=== PATIENT | female | born 1955 | race Caucasian/White ===

== ENCOUNTER 2023-06-20 08:09 | Outpatient (OUT) | payer OTHER, SELFPAY ==
[2023-06-20 08:40] LABS: Basophils Absolute Auto 0.1 10^3/uL (0.0-0.1); Basophils Percent Auto 0.9 % (0.2-2.0); Eosinophils Absolute Auto 0.2 10^3/uL (0.0-0.7); Eosinophils Percent Auto 3.7 % (0.9-7.0); Hemoglobin 13.4 g/dL (12.0-16.0); Immature Granulocytes Abs Auto 0.02 10^3/uL (0.00-0.03); Immature Granulocytes Pct Auto 0.3 % (0.0-0.5); Lymphocytes Absolute Auto 2.2 10^3/uL (1.2-3.8); Lymphocytes Percent Auto 34.1 % (20.5-60.0); Mean Corpuscular HGB Conc 32.7 g/dL (29.9-35.2); Mean Corpuscular Hemoglobin 29.9 pg (26.7-34.0); Mean Corpuscular Volume 91.5 fL (81.0-99.0); Mean Platelet Volume 8.9 fL (9.5-13.5); Monocytes Absolute Auto 0.5 10^3/uL (0.3-0.8); Monocytes Percent Auto 8.1 % (1.7-12.0); Neutrophils Absolute Auto 3.4 10^3/uL (1.4-6.5); Neutrophils Percent Auto 52.9 % (43.0-75.0); Platelet Count 274 10^3/uL (150-450); Red Blood Count 4.48 10^6/uL (4.20-5.40); Red Cell Distribution Width 13.3 % (11.0-15.0); White Blood Count 6.5 10^3/uL (4.0-11.0)
[2023-06-20 08:45] LABS: Bilirubin Urine NEGATIVE (NEGATIVE); Blood Urine MODERATE (NEGATIVE); Clarity Urine CLEAR (CLEAR); Color Urine LT. YELLOW (YELLOW); Glucose Urine UA NEGATIVE (NEGATIVE); Ketones Urine NEGATIVE (NEGATIVE); Leukocyte Esterase Urine NEGATIVE (NEGATIVE); Nitrite Urine NEGATIVE (NEGATIVE); Protein Urine NEGATIVE (NEG/TRACE); Urobilinogen Urine 0.2 EU/dL (0.2-1.0)
[2023-06-20 09:03] LABS: Bacteria Urine NONE SEEN #/HPF (NONE SEEN); Cast Seen? NONE SEEN #/LPF (NONE SEEN); Crystals Seen? None Seen #/HPF (None Seen); Mucus Urine NONE SEEN (NONE SEEN); Squamous Epithelial Cell Urine RARE #/LPF (NONE/RARE); WBC Urine 0-2 #/HPF (NONE SEEN)
[2023-06-20 09:23] LABS: Alanine Aminotransferase 21 U/L (14-59); Albumin Level 3.7 g/dL (3.4-5.0); Alkaline Phosphatase 54 U/L (46-116); Anion Gap 12.6; Aspartate Amino Transferase 14 U/L (15-37); BUN Creatinine Ratio 29.9; Bilirubin Total 0.6 mg/dL (0.2-1.0); Calcium 9.2 mg/dL (8.5-10.1); Carbon Dioxide 26.4 mmol/L (21.0-32.0); Chloride 101 mmol/L (98-107); Chol HDL Ratio 2.6; Cholesterol 208 mg/dL (<=200); Estimated GFR (African America >60 (>=60); Estimated GFR (Non-African Ame >60 (>=60); Globulin 3.6 g/dL; Glucose 99 mg/dL (74-106); HDL Cholesterol 81 mg/dL (40-60); Sodium 136 mmol/L (136-145); Total Protein 7.3 g/dL (6.4-8.2); Triglycerides 52 mg/dL (<=150); VLDL CHOLESTEROL 10.4 mg/dL
== END 2023-06-20 08:10 | disposition home or self-care (01) ==
LOC: LAB 08:12
PROVIDERS: PCP Nurse Practitioner; Visit Provider Nurse Practitioner
DX: R31.21 Asymptomatic microscopic hematuria (principal); J44.9 Chronic obstructive pulmonary disease, unspecified; I10 Essential (primary) hypertension; E78.5 Hyperlipidemia, unspecified
CPT/HCPCS: 36415; 80053; 80061; 81001; 85025

== ENCOUNTER 2023-07-20 11:09 | Emergency (ER) | payer OTHER, SELFPAY ==
[2023-07-20 11:16] VITALS: BP 177/107; PULSE 69; RESP 18; TEMP 36.4; O2SAT 98; BMI 22.0
--- OUTSIDE RECORDS SUMMARY | 2023-07-20 11:38 | XMS_ITS | CCD ---
Author Name Unknown Address [address] [facility] [address] [place] [id number] Organization [facility] Care Team Providers Care Title Specialist Name Role Phone AICHHOLZ, ROLLER CHECKER MAE Admitting Unavailable AICHHOLZ, ROLLER CHECKER MAE Attending Unavailable DR SILVESTRE SULLIVAN Primary Care Unavailable AICHHOLZ, ROLLER CHECKER MAE Consulting Unavailable AICHHOLZ, ROLLER CHECKER MAE Primary Care Unavailable AICHHOLZ, ROLLER CHECKER MAE Admitting Unavailable AICHHOLZ, ROLLER CHECKER MAE Attending Unavailable AICHHOLZ, ROLLER CHECKER MAE Consulting Unavailable AICHHOLZ, ROLLER CHECKER AME Admitting Unavailable AICHHOLZ, ROLLER CHECKER MAE Attending Unavailable AICHHOLZ, ROLLER CHECKER MAE Consulting Unavailable AICHHOLZ, ROLLER CHECKER MAE Primary Care Unavailable AICHHOLZ, ROLLER CHECKER MAE Admitting Unavailable AICHHOLZ, ROLLER CHECKER MAE Attending Unavailable AICHHOLZ, ROLLER CHECKER MAE Consulting Unavailable AICHHOLZ, ROLLER CHECKER MAE Primary Care Unavailable MD Oral Haji Attending Provider NON STAFF Primary Care Provider Unavailabl e NON STAFF Primary Care Unavailable Oral Haji Admitting Unavailable Oral Haji Attending Unavailable NON STAFF Primary Care Unavailable Oral Haji Admitting Unavailable Oral Haji Attending Unavailable NON STAFF Primary Care Unavailable Oral Haji Admitting Unavailable Oral Haji Attending Unavailable AICHHOLZ, MAE Attending Unavailable Allergies Allergy Classification Reported Allergen(s) Allergy Type Date of Onset Reaction(s) Facility (1 source) Acetaminophen / oxyCODONE Drug Allergy 04-15-[address] [facility] Medications Current Medications Medication Drug Class(es) Dates Sig (Normalized) Sig (Original) 120 actuat budesonide 0.16 mg/actuat / formoterol fumarate 0.0045 mg/actuat metered dose inhaler (2 sources) Corticosteroid, beta2-Adrenergic Agonist Start: 01-02-2023 Budesonide-Formotero l Active 2 INH INHALATION Twice daily January 02, 2023 12:00am cholecalciferol 0.125 mg oral tablet (2 sources) Vitamin D Start: 01-02-2023 take 5000 [IU] by mouth once daily in the morning Cholecalciferol (Vitamin D3) Active 5000 UNIT PO Every morning January 02, 2023 12:00am lisinopril 20 mg oral tablet (2 sources) Angiotensin Converting Enzyme Inhibitor Start: 01-02-2023 take 20 mg by mouth once daily Lisinopril Active 20 MG PO Daily January 02, 2023 12:00am simvastatin 40 mg oral tablet (2 sources) HMG-CoA Reductase Inhibitor Start: 01-02-2023 take 40 mg by mouth once daily in the morning Simvastatin Active 40 MG PO Every morning January 02, 2023 12:00am Problems Active Problems Problem Classification Problem Date Documented Da te Episodic/Chronic Cataract (1 source) Unspecified cataract; Translations: [Unspecified cataract] Onset: 02-13-2023 Chronic Cataract (1 source) Cataract; Translations: [Age-related nuclear cataract, left eye] Onset: 01-16-2023 Disorders of lipid metabolism (4 sources) Hyperlipidemia, unspecified; Translations: [HYPERLIPIDEMIA UNSPECIFIED] Onset: 11-19-2021 Chronic Essential hypertension (1 source) Essential (primary) hypertension; Translations: [ESSENTIAL PRIMARY HYPERTENSION] Onset: 11-23-2021 Chronic Fever of unknown origin (1 source) Fever, unspecified; Translations: [FEVER UNSPECIFIED] Onset: 05-25-2022 Episodic Genitourinary symptoms and ill-defined conditions (5 sources) Asymptomatic microscopic hematuria; Translations: [Other microscopic hematuria] Onset: 11-23-2021 Episodic Nutritional deficiencies (1 source) Vitamin D deficiency, unspecified; Translations: [VITAMIN D DEFICIENCY UNSPECIFIED] Onset: 06-08-2022 Chronic Other gastrointestinal disorders (1 source) Diarrhea, unspecified; Translations: [DIARRHEA UNSPECIFIED] Onset: 05-25-2022 Episodic Unclassified (3 sources) CONTACT W/AND (SUSP) EXPOS COVID-19; Translations: [CONTACT W/AND (SUSP) EXPOS COVID-19] Onset: 06-23-2021 Unclassified (1 source) COUGH, UNSPECIFIED; Translations: [COUGH, UNSPECIFIED] Onset: 05-25-2022 Viral infection (1 source) COVID-19; Translations: [COVID-19] Onset: 05-25-2022 Past or Other Problems Problem Classification Problem Date Documented Da te Episodic/Chronic Unclassified (1 source) CONTACT W/AND (SUSP) EXPOS COVID-19; Translations: [CONTACT W/AND (SUSP) EXPOS COVID-19] Onset: 05-23-2022 Results Test Name Value Interpretation Reference Range Facility PROF CHEM 8 (BAS METB)on Anion gap [Moles/Vol] 9.9 mmol/L Normal [facility] Comment on above: Performed By: #### C VDTBH #### [facility] [address] [place] [address] Dr. Hemalatha Brunner Calcium [Mass/Vol] 9.2 mg/dL Normal 8.5-10.1 [facility] Comment on above: Performed By: #### C VDTBH #### [facility] [address] [place] [address] Dr. Hemalatha Brunner Chloride [Moles/Vol] 100 mmol/L Normal 98-[address] [facility] Comment on above: Performed By: #### C VDTBH #### [facility] [address] [place] [address] Dr. Hemalatha Brunner CO2 [Moles/Vol] 29.3 mmol/L Normal 21.0-32.0 [facility] Comment on above: Performed By: #### C VDTBH #### [facility] [address] [place] [address] Dr. Hemalatha Brunner Creatinine [Mass/Vol] 0.66 mg/dL Normal 0.55-1.[address] [facility] Comment on above: Performed By: #### C VDTBH #### [facility] [address] [place] [address] Dr. Hemalatha Brunner EGFR-AF MACANESE >60 Normal >=60 [facility] Comment on above: Performed By: #### C VDTBH #### [facility] [address] [place] [address] Dr. Hemalatha Brunner EGFR-NON AF MACANESE >60 Normal >=60 [facility] Comment on above: Performed By: #### C VDTBH #### [facility] [address] [place] [address] Dr. Hemalatha Brunner Glucose [Mass/Vol] 125 mg/dL Critically high 74-106 [facility] Comment on above: Performed By: #### C VDTBH #### [facility] [address] [place] [address] Dr. Hemalatha Brunner Potassium [Moles/Vol] 4.2 mmol/L Normal 3.5-5.1 [facility] Comment on above: Performed By: #### C VDTBH #### [facility] [address] [place] [address] Dr. Hemalatha Brunner Sodium [Moles/Vol] 135 mmol/L Critically low 136-145 [facility] Comment on above: Performed By: #### C VDTBH #### [facility] [address] [place] [address] Dr. Hemalatha Brunner Urea nitrogen [Mass/Vol] 20.0 mg/dL Critically high 7.0-18.0 [facility] Comment on above: Performed By: #### C VDTBH #### [facility] [address] [place] [address] Dr. Hemalatha Brunner Urea nitrogen/Creatinin e [Mass ratio] 30.3 mg/mg Normal [facility] Comment on above: Performed By: #### C VDTBH #### [facility] [address] [place] [address] Dr. Hemalatha Brunner UA RANDOM W/MICROSCOPICon BACTERIA NONE SEEN Normal NONE SEEN [facility] Comment on above: Performed By: #### U AMIC #### [facility] [address] [place] [address] Dr. Hemalatha Brunner Bilirubin Ql (U) Negative Normal NEGATIVE [facility] Comment on above: Performed By: #### U AMIC #### [facility] [address] [place] [address] Dr. Hemalatha Brunner CAST NONE SEEN Normal NONE SEEN [facility] Comment on above: Performed By: #### U AMIC #### [facility] [address] [address] [address] Hemalatha Brunner Clarity (U) CLEAR Normal CLEAR [facility] Comment on above: Performed By: #### U AMIC #### [facility] [address] [address] [address] Hemalatha Brunner Color (U) LT. YELLOW Normal YELLOW [facility] Comment on above: Performed By: #### U AMIC #### [facility] [address] [address] [address] Hemalatha Brunner Crystals LM Nom (Urine sed) NONE SEEN Normal NONE SEEN [facility] Comment on above: Performed By: #### U AMIC #### [facility] [address] [place] [address] Dr. Hemalatha Brunner Epithelial cells LM Ql (Urine sed) RARE Normal NONE SEEN /RARE [facility] Comment on above: Performed By: #### U AMIC #### [facility] [address] [place] [address] Dr. Hemalatha Brunner Glucose Ql (U) Negative Normal NEGATIVE [facility] Comment on above: Performed By: #### U AMIC #### [facility] [address] [place] [address] Dr. Hemalatha Brunner Hemoglobin Ql (U) MODERATE Abnormal NEGATIVE [facility] Comment on above: Performed By: #### U AMIC #### [facility] [address] [address] [address] Hemalatha Brunner Ketones Ql (U) Negative Normal NEGATIVE [facility] Comment on above: Performed By: #### U AMIC #### [facility] [address] [address] [address] Hemalatha Brunner LEUKOCYTES Negative Normal NEGATIVE [facility] Comment on above: Performed By: #### U AMIC #### [facility] [address] [place] [address] Dr. Hemalatha Brunner MUCOUS NONE SEEN Normal NONE SEEN [facility] Comment on above: Performed By: #### U AMIC #### [facility] [address] [address] [address] Hemalatha Brunner Nitrite Ql (U) Negative Normal NEGATIVE [facility] Comment on above: Performed By: #### U AMIC #### [facility] [address] [address] [address] Hemalatha Brunner pH (U) 5.5 [pH] Normal 5-9 [facility] Comment on above: Performed By: #### U AMIC #### [facility] [address] [address] [address] Hemalatha Brunner RBC 5-10 Abnormal 0-2 [facility] Comment on above: Performed By: #### U AMIC #### [facility] [address] [place] [address] Dr. Hemalatha Brunner SPEC GRAVITY 1.025 Normal 1.005-<=1.025 [facility] Comment on above: Performed By: #### U AMIC #### [facility] [address] [place] [address] Dr. Hemalatha Brunner UA PROTEIN Negative Normal NEGATIVE/ TRACE [facility] Comment on above: Performed By: #### U AMIC #### [facility] [address] [address] [address] Hemalatha Brunner Urobilinogen Qn (U) 0.2 {Savana'U}/dL Normal 0.2 - 1.0 [facility] Comment on above: Performed By: #### U AMIC #### [facility] [address] [place] [address] Dr. Hemalatha Brunner WBC NONE SEEN Normal NONE SEEN [facility] Comment on above: Performed By: #### U AMIC #### [facility] [address] [place] [address] Dr. Hemalatha Brunner VITAMIN D 25 OHon 06-03-2022 VIT D 25-OH 27.5 ng/mL Normal [facility] Comment on above: Performed By: #### V ITAD #### [facility] [address] [place] [address] Dr. Hemalatha Brunner VIT D RANGES SEE BELOW Normal [facility] Comment on above: Result Comment: <20 ng/mL Vit D deficient 20 - <30 ng/mL Vit D insufficient 30 - 100 ng/mL Vit D sufficient >100 ng/mL Potential Toxicity Performed By: #### V ITAD #### [facility] [address] [place] [address] Dr. Hemalatha Brunner Covid-19 PCR ([facility])on 05-07 SARS-CoV-2 (COVID-19) RNA GLORIA+probe Ql (Unsp spec) Detected Critically abnormal NOT DETECTED [facility] Comment on above: Result Comment: This test is not yet approved or cleared by the [place] FDA. When there are no FDA-approved or cleared tests available, and other criteria are met, FDA can make tests available under an emergency access mechanism called an Emergency Use Authorization (EUA). The EUA for this test is supported by the [place] of Health and Human Service's (HHS's) declaration that circumstances exist to justify the emergency use of in vitro diagnostics for the detection and/or diagnosis of the virus that causes COVID-19. This EUA will remain in effect (meaning this test can be used) for the duration of the COVID-19 declaration justifying emergency of IVDs, unless it is terminated or revoked by FDA (after which the test may no longer be used). Performed By: #### C VDTBH #### [facility] [address] [place] [address] Dr. Hemalatha Brunner INFLUENZA A AND B AGon 05-23 [facility] SEE BELOW Normal [facility] Comment on above: Result Comment: Nega tive for Flu A protein angiten. Infection due to Flu A cannot be ruled out. Flu A angiten in the sample may be below the detection limit of the test. Performed By: #### I NFLUAB #### [facility] [address] [place] [address] Dr. Hemalatha Brunner INFLUBNEG SEE BELOW Normal [facility] Comment on above: Result Comment: Nega tive for Flu B protein antigen. Infection due to Flu B cannot be ruled out. Flu B antigen in the sample may be below the detection limit of the test. Performed By: #### I NFLUAB #### [facility] [address] [place] [address] Dr. Hemalatha Brunner INFLUENZA A AG Negative Normal NEGATIVE SEE COMMENT [facility] Comment on above: Performed By: #### I NFLUAB #### [facility] [address] [place] [address] Dr. Hemalatha Brunner INFLUENZA B AG Negative Normal NEGATIVE SEE COMMENT [facility] Comment on above: Performed By: #### I NFLUAB #### [facility] [address] [place] [address] Dr. Hemalatha Brunner INTERNAL CONTROLS Within Normal Limits Normal Wi thin Normal Limits [facility] Comment on above: Performed By: #### I NFLUAB #### [facility] [address] [place] [address] Dr. Hemalatha Brunner CBC AUTO DIFFon 11-19-2021 BASO # 0.1 103/ul Normal 0.0-0.1 [facility] Comment on above: Performed By: #### C BC #### [facility] [address] [place] [address] Dr. Hemalatha rBunner Basophils/100 WBC (Bld) 0.9 % Normal 0.2-2.0 [facility] Comment on above: Performed By: #### C BC #### [facility] [address] [place] [address] Dr. Hemalatha Brunner EO # 0.2 103/ul Normal 0.0-0.[address] [facility] Comment on above: Performed By: #### C BC #### [facility] [address] [place] [address] Dr. Hemalatha Brunner Eosinophils/100 WBC (Bld) 2.7 % Normal 0.9-7.[address] [facility] Comment on above: Performed By: #### C BC #### [facility] [address] [place] [address] Dr. Hemalatha Brunner Erythrocyte distribution width (RBC) [Ratio] 13.3 % Normal 11.0-15.0 [facility] Comment on above: Performed By: #### C BC #### [facility] [address] [place] [address] Dr. Hemalatha Brunner Hematocrit (Bld) [Volume fraction] 40.8 % Normal 36.0-48.0 [facility] Comment on above: Performed By: #### C BC #### [facility] [address] [place] [address] Dr. Hemalatha Brunner Hemoglobin (Bld) [Mass/Vol] 13.4 g/dL Normal 12.0-16.0 [facility] Comment on above: Performed By: #### C BC #### [facility] [address] [place] [address] Dr. Hemalatha Brunner IG # 0.02 10e3/ul Normal 0.00-0.03 [facility] Comment on above: Performed By: #### C BC #### [facility] [address] [place] [address] Dr. Hemalatha Brunner IG % 0.3 % Normal 0.0-0.5 [facility] Comment on above: Performed By: #### C BC #### [facility] [address] [place] [address] Dr. Hemalatha Brunner LYMPH # 2.7 103/ul Normal 1.2-3.8 [facility] Comment on above: Performed By: #### C BC #### [facility] [address] [place] [address] Dr. Hemalatha Brunner Lymphocytes/100 WBC (Bld) 40.8 % Normal 20.5-60.0 [facility] Comment on above: Performed By: #### C BC #### [facility] [address] [place] [address] Dr. Hemalatha Brunner MANUAL DIFF REQ NO Normal [facility] Comment on above: Performed By: #### C BC #### [facility] [address] [place] [address] Dr. Hemalatha Brunner MCH (RBC) [Entitic mass] 29.7 pg Normal 26.7-34.0 [facility] Comment on above: Performed By: #### C BC #### [facility] [address] [place] [address] Dr. Hemalatha Brunner MCHC (RBC) [Mass/Vol] 32.8 g/dL Normal 29.9-35.2 [facility] Comment on above: Performed By: #### C BC #### [facility] [address] [address] [address] Hemalatha Brunner MCV (RBC) [Entitic vol] 90.5 fL Normal 81.0-99.0 [facility] Comment on above: Performed By: #### C BC #### [facility] [address] [address] [address] Hemalatha Brunner MONO # 0.6 103/ul Normal 0.3-0.8 [facility] Comment on above: Performed By: #### C BC #### [facility] [address] [place] [address] Dr. Hemalatha Brunner Monocytes/100 WBC (Bld) 8.3 % Normal 1.7-12.0 [facility] Comment on above: Performed By: #### C BC #### [facility] [address] [place] [address] Dr. Hemalatha Brunner NEUT # 3.2 103/ul Normal 1.4-6.5 [facility] Comment on above: Performed By: #### C BC #### [facility] [address] [place] [address] Dr. Hemalatha Brunner Neutrophils/100 WBC (Bld) 47.0 % Normal 43.0-75.0 [facility] Comment on above: Performed By: #### C BC #### [facility] [address] [place] [address] Dr. Hemalatha Brunner Platelet mean volume (Bld) [Entitic vol] 9.3 fL Critically low 9.5-13.5 [facility] Comment on above: Performed By: #### C BC #### [facility] [address] [place] [address] Dr. Hemalatha Brunner PLT 305 103/ul Normal 150-[address] [facility] Comment on above: Performed By: #### C BC #### [facility] [address] [place] [address] Dr. Hemalatha Brunner RBC 4.51 106/ul Normal 4.20-5.40 [facility] Comment on above: Performed By: #### C BC #### [facility] [address] [address] [address] Hemalatha Brunner WBC 6.7 103/ul Normal 4.0-11.0 [facility] Comment on above: Performed By: #### C BC #### [facility] [address] [address] [address] Hemalatha Brunner LIPID PROFILEon 11-19-2021 CHOL-HDL RATIO NORM SEE BELOW Normal [facility] Comment on above: Result Comment: 3.3 - 4.4 LOW RISK 4.4 - 7.1 AVERAGE RISK 7.1 - 11.0 MODERATE RISK >11.0 HIGH RISK Performed By: #### C MP, LIPID #### [facility] [address] [place] [address] Dr. Hemalatha Brunner Cholesterol [Mass/Vol] 192 mg/dL Normal <=200 [facility] Comment on above: Performed By: #### C MP, LIPID #### [facility] [address] [place] [address] Dr. Hemalatha Brunner Cholesterol in HDL [Mass/Vol] 65 mg/dL Critically high 40-60 [facility] Comment on above: Performed By: #### C MP, LIPID #### [facility] [address] [place] [address] Dr. Hemalatha Brunner Cholesterol in LDL [Mass/Vol] 108.6 mg/dL Normal [facility] Comment on above: Performed By: #### C MP, LIPID #### [facility] [address] [place] [address] Dr. Hemalatha Brunner Cholesterol.total/ Cholesterol in HDL [Mass ratio] 3.0 {ratio} Normal [facility] Comment on above: Performed By: #### C MP, LIPID #### [facility] [address] [place] [address] Dr. Hemalatha Brunner HDL NORMAL > or = 60 mg/dl - LOW CARDIOVASCULAR RISK <40 mg/dl - HIGH CARDIOVASCULAR RISK Normal [facility] Comment on above: Performed By: #### C MP, LIPID #### [facility] [address] [place] [address] Dr. Hemalatha Brunner LDL CALC NORMAL SEE BELOW Normal [facility] Comment on above: Result Comment: <100 mg/dl OPTIMAL 100 - 129 mg/dl NEAR OR ABOVE OPTIMAL 130 - 159 mg/dl BORDERLINE HIGH 160 - 189 mg/dl HIGH >190 mg/dl VERY HIGH Performed By: #### C MP, LIPID #### [facility] [address] [address] [address] Hemalatha Brunner Triglyceride [Mass/Vol] 92 mg/dL Normal <=150 [facility] Comment on above: Performed By: #### C MP, LIPID #### [facility] [address] [address] [address] Hemalatha Brunner VLDL CALC 18.4 mg/dL Normal [facility] Comment on above: Performed By: #### C MP, LIPID #### [facility] [address] [place] [address] Dr. Hemalatha Brunner PROF 14(COMP METB)on 022 Albumin [Mass/Vol] 4.0 g/dL Normal 3.4-5.0 [facility] Comment on above: Performed By: #### C MP, LIPID #### [facility] [address] [address] [address] Hemalatha Brunner Albumin/Globulin [Mass ratio] 1.1 {ratio} Normal [facility] Comment on above: Performed By: #### C MP, LIPID #### [facility] [address] [place] [address] Dr. Hemalatha Brunner ALP [Catalytic activity/Vol] 59 U/L Normal 46-[address] [facility] Comment on above: Performed By: #### C MP, LIPID #### [facility] [address] [address] [address] Hemalatha Brunner ALT [Catalytic activity/Vol] 25 U/L Normal 14-59 [facility] Comment on above: Performed By: #### C MP, LIPID #### [facility] [address] [address] [address] Hemalatha Brunner Anion gap [Moles/Vol] 11.4 mmol/L Normal [facility] Comment on above: Performed By: #### C MP, LIPID #### [facility] [address] [address] [address] Hemalatha Brunner AST [Catalytic activity/Vol] 12 U/L Critically low 15-37 [facility] Comment on above: Performed By: #### C MP, LIPID #### [facility] [address] [address] [address] Hemalatha Brunner Bilirubin [Mass/Vol] 0.5 mg/dL Normal 0.2-1.0 [facility] Comment on above: Performed By: #### C MP, LIPID #### [facility] [address] [address] [address] Hemalatha Brunner Calcium [Mass/Vol] 9.2 mg/dL Normal 8.5-10.1 [facility] Comment on above: Performed By: #### C MP, LIPID #### [facility] [address] [place] [address] Dr. Hemalatha Brunner Chloride [Moles/Vol] 100 mmol/L Normal 98-107 [facility] Comment on above: Performed By: #### C MP, LIPID #### [facility] [address] [address] [address] Hemalatha Brunner CO2 [Moles/Vol] 28.7 mmol/L Normal 21.0-32.0 [facility] Comment on above: Performed By: #### C MP, LIPID #### [facility] [address] [address] [address] Hemalatha Brunner Creatinine [Mass/Vol] 0.59 mg/dL Normal 0.55-1.02 [facility] Comment on above: Performed By: #### C MP, LIPID #### [facility] [address] [address] [address] Hemalatha Brunner EGFR-AF MACANESE >60 Normal >=60 [facility] Comment on above: Performed By: #### C MP, LIPID #### [facility] [address] [address] Dr. Hemalatha Brunner EGFR-NON AF MACANESE >60 Normal >=60 [facility] Comment on above: Performed By: #### C MP, LIPID #### [facility] [address] [address] [address] Hemalatha Brunner Globulin (S) [Mass/Vol] 3.6 g/dL Normal [facility] Comment on above: Performed By: #### C MP, LIPID #### [facility] [address] [address] [address] Hemalatha Brunner Glucose [Mass/Vol] 99 mg/dL Normal 74-106 [facility] Comment on above: Performed By: #### C MP, LIPID #### [facility] [address] [address] [address] Hemalatha Brunner Potassium [Moles/Vol] 4.1 mmol/L Normal 3.5-5.1 [facility] Comment on above: Performed By: #### C MP, LIPID #### [facility] [address] [address] [address] Hemalatha Brunner Protein [Mass/Vol] 7.6 g/dL Normal 6.4-8.2 [facility] Comment on above: Performed By: #### C MP, LIPID #### [facility] [address] [address] [address] Hemalatha Brunner Sodium [Moles/Vol] 136 mmol/L Normal 136-145 [facility] Comment on above: Performed By: #### C MP, LIPID #### [facility] [address] [address] [address] Hemalatha Brunner Urea nitrogen [Mass/Vol] 20.0 mg/dL Critically high 7.0-18.0 [facility] Comment on above: Performed By: #### C MP, LIPID #### [facility] [address] [address] [address] Hemalatha Brunner Urea nitrogen/Creatinin e [Mass ratio] 33.9 mg/mg Normal [facility] Comment on above: Performed By: #### C MP, LIPID #### [facility] [address] [place] [address] Dr. Hemalatha Brunner UA RANDOM W/MICROSCOPICon BACTERIA NONE SEEN Normal NONE SEEN [facility] Comment on above: Performed By: #### U AMIC #### [facility] [address] [address] [address] Hemalatha Brunner Bilirubin Ql (U) Negative Normal NEGATIVE [facility] Comment on above: Performed By: #### U AMIC #### [facility] [address] [address] [address] Hemalatha Brunner CAST NONE SEEN Normal NONE SEEN [facility] Comment on above: Performed By: #### U AMIC #### [facility] [address] [address] [address] Hemalatha Brunner Clarity (U) SL CLOUDY Abnormal CLEAR [facility] Comment on above: Performed By: #### U AMIC #### [facility] [address] [address] [address] Hemalatha Brunner Color (U) LT. YELLOW Normal YELLOW [facility] Comment on above: Performed By: #### U AMIC #### [facility] [address] [address] [address] Hemalatha Brunner Crystals LM Nom (Urine sed) NONE SEEN Normal NONE SEEN [facility] Comment on above: Performed By: #### U AMIC #### [facility] [address] [address] [address] Hemalatha Brunner Epithelial cells LM Ql (Urine sed) RARE Normal NONE SEEN /RARE [facility] Comment on above: Performed By: #### U AMIC #### [facility] [address] [address] [address] Hemalatha Brunner Glucose Ql (U) Negative Normal NEGATIVE [facility] Comment on above: Performed By: #### U AMIC #### [facility] [address] [address] [address] Hemalatha Brunner Hemoglobin Ql (U) MODERATE Abnormal NEGATIVE [facility] Comment on above: Performed By: #### U AMIC #### [facility] [address] [address] [address] Hemalatha Brunner Ketones Ql (U) Negative Normal NEGATIVE [facility] Comment on above: Performed By: #### U AMIC #### [facility] [address] [address] [address] Hemalatha Brunner LEUKOCYTES Negative Normal NEGATIVE [facility] Comment on above: Performed By: #### U AMIC #### [facility] [address] [address] [address] Hemalatha Brunner MUCOUS NONE SEEN Normal NONE SEEN [facility] Comment on above: Performed By: #### U AMIC #### [facility] [address] [address] [address] Hemalatha Brunner Nitrite Ql (U) Negative Normal NEGATIVE [facility] Comment on above: Performed By: #### U AMIC #### [facility] [address] [place] [address] Dr. Hemalatha Brunner pH (U) 5.5 [pH] Normal 5-9 [facility] Comment on above: Performed By: #### U AMIC #### [facility] [address] [place] [address] Dr. Hemalatha Brunner RBC 2-5 Abnormal 0-2 [facility] Comment on above: Performed By: #### U AMIC #### [facility] [address] [place] [address] Dr. Hemalatha Brunner SPEC GRAVITY <=1.005 Abnormal 1.005-<=1.025 [facility] Comment on above: Performed By: #### U AMIC #### [facility] [address] [place] [address] Dr. Hemalatha Brunner UA PROTEIN Negative Normal NEGATIVE/ TRACE [facility] Comment on above: Performed By: #### U AMIC #### [facility] [address] [place] [address] Dr. Hemalatha Brunner Urobilinogen Qn (U) 0.2 {Savana'U}/dL Normal 0.2 - 1.0 [facility] Comment on above: Performed By: #### U AMIC #### [facility] [address] [place] [address] Dr. Hemalatha Brunner WBC NONE SEEN Normal NONE SEEN [facility] Comment on above: Performed By: #### U AMIC #### [facility] [address] [place] [address] Dr. Hemalatha Brunner VITAMIN D 25 OHon 11-19-2021 VIT D 25-OH 19.4 ng/mL Normal [facility] Comment on above: Performed By: #### V ITAD #### [facility] [address] [place] [address] Dr. Hemalatha Brunner VIT D RANGES SEE BELOW Normal [facility] Comment on above: Result Comment: <20 ng/mL Vit D deficient 20 - <30 ng/mL Vit D insufficient 30 - 100 ng/mL Vit D sufficient >100 ng/mL Potential Toxicity Performed By: #### V ITAD #### [facility] [address] [address] [address] Hemalatha Brunner Covid-19 PCR ([facility])on 06-06 SARS-CoV-2 (COVID-19) RNA GLORIA+probe Ql (Unsp spec) Not detected Normal NOT DETECTED [facility] Comment on above: Result Comment: This test is not yet approved or cleared by the [place] FDA. When there are no FDA-approved or cleared tests available, and other criteria are met, FDA can make tests available under an emergency access mechanism called an Emergency Use Authorization (EUA). The EUA for this test is supported by the [employer] Specialist of Health and Human Service's (HHS's) declaration that circumstances exist to justify the emergency use of in vitro diagnostics for the detection and/or diagnosis of the virus that causes COVID-19. This EUA will remain in effect (meaning this test can be used) for the duration of the COVID-19 declaration justifying emergency of IVDs, unless it is terminated or revoked by FDA (after which the test may no longer be used). When diagnostic testing is negative, the possibility of a false negative should be considered in the context of a patient's recent exposures and the presence of clinical signs and symptoms consistent with SARS-CoV-2. Performed By: #### C VDTBH #### [facility] [address] [place] [address] Dr. Hemalatha Brunner Vital Signs Date Time Vital Sign Value Performing Clinician Radha rivera 02-13-2023 11:25-0400 Diastolic blood pressure 92 mm[Hg] MD Oral Haji Work Phone: [facility] 02-13-2023 11:25-0400 Heart rate 59 /min MD Oral Haji Work Phone: [facility] 02-13-2023 11:25-0400 Respiratory rate 16 /min MD Oral Haji Work Phone: [facility] 02-13-2023 11:25-0400 SaO2% (BldA) [Mass fraction] 98 % MD Oral Haji Work Phone: [phone])369-978719 [place] [address] 02-13-2023 11:25-0400 Systolic blood pressure 145 mm[Hg] MD Oral Haji Work Phone: [phone])634-188919 [place] [address] 02-13-2023 10:55-0400 Inhaled oxygen flow rate 5 L/min MD Oral Haji Work Phone: [facility] 02-13-2023 09:02-0400 Body height 157.48 cm MD Oral Haji Work Phone: [facility] 02-13-2023 09:02-0400 Body temperature 97.9 [degF] MD Oral Haji Work Phone: [facility] 02-13-2023 09:02-0400 Body weight 54.43 kg MD Oral Haji Work Phone: [facility] 01-16-2023 13:20-0400 Diastolic blood pressure 89 mm[Hg] MD Oral Haji Work Phone: [phone])[phone] [place] [address] 01-16-2023 13:20-0400 Heart rate 61 /min MD Oral Haji Work Phone: [facility] 01-16-2023 13:20-0400 Respiratory rate 16 /min MD Oral Haji Work Phone: [facility] 01-16-2023 13:20-0400 SaO2% (BldA) [Mass fraction] 96 % MD Oral Haji Work Phone: [facility] 01-16-2023 13:20-0400 Systolic blood pressure 164 mm[Hg] MD Oral Haji Work Phone: [facility] 01-16-2023 09:43-0400 Body height 158.75 cm MD Oral Haji Work Phone: [facility] 01-16-2023 09:43-0400 Body temperature 97.9 [degF] MD Oral Haji Work Phone: [facility] 01-16-2023 09:43-0400 Body weight 53.52 kg MD Oral Haji Work Phone: [facility] Encounters Encounter Date Encounter Type Care Provider Facility Start: 06-19-2023 End: 06-19-2023 ambulatory MAE COTTERSINAN Not Available Start: 02-13-2023 End: 02-13-2023 ambulatory NON STAFF Facility:[facility] Start: 02-13-2023 End: 02-13-2023 Admission to same day surgery center MD Oral Haji [facility] [place] Start: 02-13-2023 End: 02-13-2023 ambulatory NON STAFF [facility] Work Phone: Start: 01-16-2023 End: 01-16-2023 ambulatory NON STAFF Facility:[facility] Start: 01-16-2023 End: 01-16-2023 Admission to same day surgery center MD Oral Haji Work Phone: [facility] [place] [facility] [place] Start: 01-02-2023 End: 01-02-2023 ambulatory NON STAFF Facility:[facility] Start: 01-02-2023 End: 01-02-2023 ambulatory NON STAFF [facility] Work Phone: Start: 01-02-2023 End: 01-02-2023 Departed Referred MD Oral Haji Work Phone: [facility] [employer] Work Phone: Start: 01-02-2023 End: 01-02-2023 Patient encounter procedure MD Oral Haji Work Phone: [facility] [facility] Work Phone: Start: 06-03-2022 End: 06-04-2022 ambulatory ROLLER CHECKER MAE AICHHOLZ Facility:[facility] Start: 05-23-2022 End: 05-23-2022 ambulatory ROLLER CHECKER MAE AICHHOLZ Facility:[facility] Start: 11-19-2021 End: 11-20-2021 ambulatory ROLLER CHECKER MAE AICHHOLZ Facility:[facility] Start: 06-19-2021 End: 06-19-2021 ambulatory ROLLER CHECKER MAE AICHHOLZ Facility:[facility] Procedures Date Procedure Procedure Detail Performing Clinician Start: 02-13-2023 Phacoemulsification of cataract with intraocular lens implantation MD Oral Haji Work Phone: Start: 01-16-2023 Phacoemulsification of cataract with intraocular lens implantation MD Oral Haji Work Phone: Plan of Treatment Date Care Activity Detail Author Start: 02-13-2023 [facility] Start: 01-16-2023 [facility] Start: 01-16-2023 [facility] Patient referral [facility] Work Phone: Payers Date Payer Category Payer Self-pay 1959 Unknown [id number] 1955 Unknown [id number] 2.16.84 [id number] 1955 Unknown [id number] 2.16.84 [id number] 1955 Unknown [id number] 2.16.84 [id number] 1955 Unknown [id number] 2.16.84 [id number] 1955 Unknown [id number] Unknown [id number] 2.16.8 [id number] Unknown [id number] 2.16.8 [id number] Unknown [id number] 2.16.8 [id number] Social History Date Type Detail Facility Start: 01-02-2023 End: 02-13-2023 Tobacco smoking status NHIS Current some day smoker [facility] Start: 1955 Sex Assigned At Female F [facility] Medical Equipment Procedure Code Equipment Code Equipment Origin al Text Equipment Identifier Dates Phacoemulsification of cataract with intraocular lens implantation Posterior-chamber intraocular lens, pseudophakic [id number] FDA Start: 01-16-2023 Goals Date Patient Goal Desired Activity /State Evaluation note Note Date & Type Note Facility Evaluation note No assessment information availa ble [facility] Work Phone: Summary Purpose Family History No Family History Records Found Relationship Condition Age at Onset Recorded Date/T morro father Medical history unknown Unknown Not Specified Medical history unknown Unknown Advance Directives No Advanced Directives Records Found Advance Directive Response Recorded Date/ Time Advance Directives No December 10 12:37pm Chief Complaint and Reason for Visit Chief Complaint Left Cataract Chief Complaint Left Cataract Left Cataract Right Cataract Additional Source Comments INFORMATION SOURCE (unrecogn ized section and content) DATE CREATED AUTHOR [facility]/08/2022 [facility] DATE CREATED AUTHOR AUTHOR'S ORGANIZ ATION 02/20/2023 [facility] DATE CREATED AUTHOR AUTHOR'S ORGANIZ ATION 06/21/2023 [facility] [employer] EPIC Care Teams (unrecognized sec tion and content) Team Status: Active Member Role Status Dates NON STAFF Primary Care Provider Active Team Status: Inactive Member Role Status Dates Oral Haji MD Attending Provider Active NON STAFF Primary Care Provider Active Goals (unrecognized section and content) Goals may be documented in a n alternate section FOR RECORDS PERTAINING TO PATIENTS WHO ARE OR HAVE BEEN ENROLLED IN A CHEMICAL DEPENDENCY/SUBSTANCEABUSE PROGRAM, SOME INFORMATION MAY BE OMITTED. This clinical summary was aggregated from multiple sources. Caution should be exercised in using it in the provision of clinical care. This summary normalizes information from multiple sources, and as a consequence, information in this document may materially change the coding, format and clinical context of patient data. In addition, data may be omitted in some cases. CLINICAL DECISIONS SHOULD BE BASED ON THE PRIMARY CLINICAL RECORDS. [facility] [employer] [facility]. provides no warranty or guarantee of the accuracy or completeness of information in this document.
[2023-07-20] MEDS: LIDOCAINE HCL 1% 100 MG/10 ML MDV INJ (12:05)
--- NOTE | 2023-07-20 15:11 | ED.GENADUL1 ---
HPI - General Adult General Chief complaint: Skin/Abscess/Foreign Body Stated complaint: LACERATION Time Seen by Provider: 07/20/23 11:18 Source: patient Mode of arrival: walk-in Limitations: no limitations History of Present Illness HPI narrative: Presenting with a laceration to left hand thumb after she was cutting some food with a knife, the patient had her tetanus booster in the last 5 years No other injuries Related Data Home Medications Medication Instructions Recorded Confirmed No Known Home Medications 07/20/23 07/20/23 Allergies Allergy/AdvReac Type Severity Reaction Status Date / Time No Known Drug Allergies Allergy Verified 07/20/23 11:18 Review of Systems ROS Status of ROS 10 or more systems reviewed and unremarkable except as noted in history and below [facility] Social History Smoking status: Current every day smoker Exam Narrative Exam Narrative: Nurses notes and vital signs reviewed and patient is not hypoxic. General: Well-appearing and in no apparent distress. Skin: Warm, dry, no pallor noted. No rash. Head: Normocephalic, atraumatic. Neck: Supple, non-tender. Eye: Pupils are equal, round and EOMI. No scleral icterus. Ears, Nose, Mouth, and Throat: TM are clear, no nasal mucosal hypertrophy. Oral mucosa is moist, no posterior oropharynx erythema, uvula is mid-line Cardiovascular: Regular Rate and Rhythm without murmur, gallop or rub. Respiratory: No accessory muscle use or respiratory distress. Lungs are clear to auscultation, no wheezing, rales or rhonchi Chest Wall: no tenderness Back: No midline thoracic or lumbar vertebral tenderness. No CVA tenderness Musculoskeletal: normal ROM, no calf or popliteal tenderness, no lower extremity edema/swelling. On the left hand thumb the patient have a laceration that is almost 2 cm linear at the palmar aspect of the mid phalanx. No exposure of the bone or tendon.the patient have a preserved range of movement. GI: Abdomen is soft, non-distended. Normal bowel sounds. No masses appreciated. No tenderness to palpation. No rebound, guarding, or rigidity noted. Neurological: A&O x4. No cranial nerve dysfunction observed. No truncal ataxia. Moves all extremities. Sensation intact. Psychiatric: Cooperative and interactive. Normal mood and affect. Constitutional Vital Signs, click to edit/add: Last Vital Signs Temp 97.6 F 07/20/23 11:16 Pulse 69 07/20/23 11:16 Resp 18 07/20/23 11:16 BP 177/107 H 07/20/23 11:16 Pulse Ox 98 07/20/23 11:16 O2 Del Method Room Air 07/20/23 11:16 Course Vital Signs Vital signs: Vital Signs Temperature 97.6 F 07/20/23 11:16 Pulse Rate 69 07/20/23 11:16 Respiratory Rate 18 07/20/23 11:16 Blood Pressure 177/107 H 07/20/23 11:16 Pulse Oximetry 98 07/20/23 11:16 Oxygen Delivery Method Room Air 07/20/23 11:16 Temperature 97.6 F 07/20/23 11:16 Pulse Rate 69 07/20/23 11:16 Respiratory Rate 18 07/20/23 11:16 Blood Pressure 177/107 H 07/20/23 11:16 Pulse Oximetry 98 07/20/23 11:16 Oxygen Delivery Method Room Air 07/20/23 11:16 Medical Decision Making MDM Narrative Medical decision making narrative: After cleaning the area thoroughly the patient had finger block applied with 1% lidocaine with no epinephrine. After which the patient also had 2 cc of 1% lidocaine infiltrated the wound. The patient had 8 stitches interrupted to close the wound and control the bleeding that are 4-0 Ethilon Splint applied after that as well as dressing the patient was instructed about wound care proper sutures care The patient is to follow up with primary care physician in next 2-3 days or to return to the emergency department should any of the signs or symptoms worsen or new symptoms develop. The patient agrees with the following Diagnosis and Treatment plan and the patient will be discharged home. Discharge Plan Discharge Chief Complaint: Skin/Abscess/Foreign Body Clinical Impression: Laceration of thumb Qualifiers: Encounter type: initial encounter Damage to nail status: with damage Foreign body presence: without foreign body Laterality: left Qualified Code(s): S61.112A - Laceration without foreign body of left thumb with damage to nail, initial encounter Patient Disposition: Home, Self-Care Time of Disposition Decision: 12:08 Condition: Good Prescriptions / Home Meds: No Action No Known Home Medications Instructions: Laceration (DC), Finger Laceration (ED) Stand Alone Forms: Portal Instructions Referrals: Nichole Cameron NP [Primary Care Provider] - 1 week Discharge Date/Time: 07/20/23 12:24
== END 2023-07-20 12:24 | disposition home or self-care (01) ==
PROVIDERS: Emergency Provider Emergency Medicine; PCP Nurse Practitioner
DX: S61.012A Laceration without foreign body of left thumb without damage to nail, initial encounter (principal); W26.0XXA Contact with knife, initial encounter; F17.210 Nicotine dependence, cigarettes, uncomplicated
CPT/HCPCS: 12001; 99282

== ENCOUNTER 2023-07-22 13:43 | Emergency (ER) | payer OTHER, SELFPAY ==
[2023-07-22 13:47] VITALS: BP 144/90; PULSE 72; RESP 16; TEMP 37; O2SAT 96
--- NOTE | 2023-07-22 13:53 | PC.NURSE ---
dressing and splint removed, area cleansed and suters intact. PA assessment complete and plan in place for home care.
--- NOTE | 2023-07-22 13:55 | ED.SKABFB1 ---
Documented by User: [email or web address] Sanchez 07/22/23 14:00 HPI - Skin/Abscess/Foreign Bdy General Chief complaint: Skin/Abscess/Foreign Body Stated complaint: WOUND CHECK Time Seen by Provider: 07/22/23 13:44 Source: patient Mode of arrival: walk-in History of Present Illness HPI narrative: Patient is a 68-year-old female who presents to the emergency department for dressing change to her left hand. She had 8 sutures placed in her left thumb 2 days ago in this emergency department. She states her discharge instructions said to have the dressing changed in 48 hours. She states she is not able to tolerate this at home because she states she will pass out . She has no one at home to help her with this so she return to the ER for ER staff to change her dressing. She has not had any issues with the area. She has no other focal medical complaints. Related Data Home Medications Medication Instructions Recorded Confirmed No Known Home Medications 07/20/23 07/20/23 Allergies Allergy/AdvReac Type Severity Reaction Status Date / Time No Known Drug Allergies Allergy Verified 07/20/23 11:18 Review of Systems ROS Constitutional Denies: fever or chills Ears, nose, mouth, and throat Denies: throat pain or nasal congestion Cardiovascular Denies: chest pain Respiratory Denies: shortness of breath Gastrointestinal Denies: nausea or vomiting Genitourinary Denies: painful urination Musculoskeletal Denies: back pain, extremity pain or extremity swelling Integumentary/Breast Denies: rash Neurological Denies: headache PFSH PFSH Social History Smoking status: Current every day smoker Exam Narrative Exam Narrative: Gen.: Awake, alert, in no distress Head: Normocephalic, atraumatic ENT: Moist mucous membranes Respiratory: No respiratory distress Extremities: Moves extremities equally, Sutures intact to the base of the left thumb with no swelling, dehiscence or drainage. No redness. Dried blood noted around the sutures. Psych: Normal mood and affect Neuro: No focal neuro deficit Skin: Warm, dry, intact Constitutional Vital Signs, click to edit/add: Last Vital Signs Temp 98.6 F 07/22/23 13:47 Pulse 72 07/22/23 13:47 Resp 16 07/22/23 13:47 BP 144/90 H 07/22/23 13:47 Pulse Ox 96 07/22/23 13:47 O2 Del Method Room Air 07/22/23 13:47 Course Vital Signs Vital signs: Vital Signs Temperature 98.6 F 07/22/23 13:47 Pulse Rate 72 07/22/23 13:47 Respiratory Rate 16 07/22/23 13:47 Blood Pressure 144/90 H 07/22/23 13:47 Pulse Oximetry 96 07/22/23 13:47 Oxygen Delivery Method Room Air 07/22/23 13:47 Temperature 98.6 F 07/22/23 13:47 Pulse Rate 72 07/22/23 13:47 Respiratory Rate 16 07/22/23 13:47 Blood Pressure 144/90 H 07/22/23 13:47 Pulse Oximetry 96 07/22/23 13:47 Oxygen Delivery Method Room Air 07/22/23 13:47 MDM - Skin/Abscess/Foreign Bdy MDM Narrative Medical decision making narrative: Patient was strongly encouraged to change her own dressing at home using soap and water with antibiotic ointment and a dressing. This was performed here in the ER, there is no evidence of dehiscence or infection at this time. Follow-up with PCP for suture removal and return to the ER if symptoms change or worsen. Medical Records Attestation: I reviewed the patient's medical records. Discharge Plan Discharge Chief Complaint: Skin/Abscess/Foreign Body Clinical Impression: Encounter for assessment of wound Patient Disposition: Home, Self-Care Time of Disposition Decision: 13:54 Condition: Good Prescriptions / Home Meds: No Action No Known Home Medications Instructions: Care For Your Stitches (ED) Additional Instructions: Have your stitches removed with Nichole Cameron in one week, call the office to make an appointment for removal Stand Alone Forms: Portal Instructions Referrals: Nichole Cameron, [employer] [Primary Care Provider] - 1 week Discharge Date/Time: 07/22/23 14:20 Documented by User: Demetrio Gomez MD 07/22/23 16:05 HPI - Skin/Abscess/Foreign Bdy General Chief complaint: Skin/Abscess/Foreign Body Stated complaint: WOUND CHECK Time Seen by Provider: 07/22/23 13:44 Related Data Home Medications Medication Instructions Recorded Confirmed No Known Home Medications 07/20/23 07/20/23 Allergies Allergy/AdvReac Type Severity Reaction Status Date / Time No Known Drug Allergies Allergy Verified 07/20/23 11:18 PFSH PFSH Social History Smoking status: Current every day smoker Exam Constitutional Vital Signs, click to edit/add: Last Vital Signs Temp 98.6 F 07/22/23 13:47 Pulse 72 07/22/23 13:47 Resp 16 07/22/23 13:47 BP 144/90 H 07/22/23 13:47 Pulse Ox 96 07/22/23 13:47 O2 Del Method Room Air 07/22/23 13:47 Course Vital Signs Vital signs: Vital Signs Temperature 98.6 F 07/22/23 13:47 Pulse Rate 72 07/22/23 13:47 Respiratory Rate 16 07/22/23 13:47 Blood Pressure 144/90 H 07/22/23 13:47 Pulse Oximetry 96 07/22/23 13:47 Oxygen Delivery Method Room Air 07/22/23 13:47 Temperature 98.6 F 07/22/23 13:47 Pulse Rate 72 07/22/23 13:47 Respiratory Rate 16 07/22/23 13:47 Blood Pressure 144/90 H 07/22/23 13:47 Pulse Oximetry 96 07/22/23 13:47 Oxygen Delivery Method Room Air 07/22/23 13:47 MDM - Skin/Abscess/Foreign Bdy MDM Narrative Medical decision making narrative: Patient was strongly encouraged to change her own dressing at home using soap and water with antibiotic ointment and a dressing. This was performed here in the ER, there is no evidence of dehiscence or infection at this time. Follow-up with PCP for suture removal and return to the ER if symptoms change or worsen. I, Dr Gomez, have reviewed the above progress note and course of action in the ER; agree with the above. I have gone over history and physical, and discussed disposition and treatment plan with the patient. Discharge Plan Discharge Chief Complaint: Skin/Abscess/Foreign Body Clinical Impression: Encounter for assessment of wound Patient Disposition: Home, Self-Care Time of Disposition Decision: 13:54 Condition: Good Prescriptions / Home Meds: No Action No Known Home Medications Instructions: Care For Your Stitches (ED) Additional Instructions: Have your stitches removed with Nichole Cameron in one week, call the office to make an appointment for removal Stand Alone Forms: Portal Instructions Referrals: Nichole Cameron [employer] [Primary Care Provider] - 1 week Discharge Date/Time: 07/22/23 14:20
[2023-07-22] MEDS: BACITRACIN 0.9 GM PACKET 1 PACKET TOPICAL (14:09)
== END 2023-07-22 14:20 | disposition home or self-care (01) ==
PROVIDERS: Emergency Provider Emergency Medicine; PCP Nurse Practitioner
DX: S61.012D Laceration without foreign body of left thumb without damage to nail, subsequent encounter (principal); X58.XXXD Exposure to other specified factors, subsequent encounter
CPT/HCPCS: 99281

== ENCOUNTER 2024-04-07 08:00 | Outpatient (OUT) | payer OTHER, SELFPAY ==
--- OUTSIDE RECORDS SUMMARY | 2024-04-07 08:04 | XMS_ITS | CCD ---
Author Organization [facility] Care Team Providers Care Radio Television Announcer Name Role Phone AICHHOLZ, ENVIRONMENTAL HEALTH AND SAFETY LEADER NICHOLE Admitting Unavailable AICHHOLZ, ENVIRONMENTAL HEALTH AND SAFETY LEADER NICHOLE Attending Unavailable DR RUDI SULLIVAN Primary Care Unavailable AICHHOLZ, ENVIRONMENTAL HEALTH AND SAFETY LEADER NICHOLE Consulting Unavailable AICHHOLZ, ENVIRONMENTAL HEALTH AND SAFETY LEADER NICHOLE Primary Care Unavailable AICHHOLZ, ENVIRONMENTAL HEALTH AND SAFETY LEADER NICHOLE Admitting Unavailable AICHHOLZ, ENVIRONMENTAL HEALTH AND SAFETY LEADER NICHOLE Attending Unavailable AICHHOLZ, ENVIRONMENTAL HEALTH AND SAFETY LEADER NICHOLE Consulting Unavailable AICHHOLZ, ENVIRONMENTAL HEALTH AND SAFETY LEADER NICHOLE Admitting Unavailable AICHHOLZ, ENVIRONMENTAL HEALTH AND SAFETY LEADER NICHOLE Attending Unavailable AICHHOLZ, ENVIRONMENTAL HEALTH AND SAFETY LEADER NICHOLE Consulting Unavailable AICHHOLZ, ENVIRONMENTAL HEALTH AND SAFETY LEADER NICHOLE Primary Care Unavailable AICHHOLZ, ENVIRONMENTAL HEALTH AND SAFETY LEADER NICHOLE Admitting Unavailable AICHHOLZ, ENVIRONMENTAL HEALTH AND SAFETY LEADER NICHOLE Attending Unavailable AICHHOLZ, ENVIRONMENTAL HEALTH AND SAFETY LEADER NICHOLE Consulting Unavailable AICHHOLZ, ENVIRONMENTAL HEALTH AND SAFETY LEADER NICHOLE Primary Care Unavailable MD Oral Haji Attending Provider NON STAFF Primary Care Provider Unavailabl e NON STAFF Primary Care Unavailable Dudenhoneelamer, Oral J Admitting Unavailable Dudenhopanfilo Oral J Attending Unavailable NON STAFF Primary Care Unavailable Oral Haji J Admitting Unavailable Oral Haji J Attending Unavailable NON STAFF Primary Care Unavailable Dudenhopanfilo, Oral J Admitting Unavailable Dudenhoneelamer, Oral J Attending Unavailable Aichholz MIXING PLACE SUPERVISOR, Nichole Unavailable Rudi Sullivan MD Primary Care Provider [phone] SHAIKH JONES Attending Unavailable AICHHOLZ, NICHOLE Attending Unavailable AICHHOLZ, NICHOLE Attending Unavailable Allergies Allergy Classification Reported Allergen(s) Allergy Type Date of Onset Reaction(s) Facility (1 source) Acetaminophen / oxyCODONE Drug Allergy 04-15-2013 [facility] Repository Medications Current Medications Medication Drug Class(es) Dates Sig (Normalized) Sig (Original) [id number] 200 actuat albuterol 0.09 mg/actuat metered dose inhaler (1 source) beta2-Adrenergic Agonist take 2 puff(s) by inhalation every four hours for wheezing albuterol HFA 90 mcg/act inhaler Inhale 2 puffs every 4 (four) hours if needed for wheezing or shortness of breath 0 Active 120 actuat budesonide 0.16 mg/actuat / formoterol fumarate 0.0045 mg/actuat metered dose inhaler (3 sources) Corticosteroid, beta2-Adrenergic Agonist Start: 01-02-2023 Budesonide-Formot robbie Active 2 INH INHALATION Twice daily January 02, 2023 12:00am take 2 puff(s) by in halation in the morning budesonide-formoterol (Symbicort) 160-4. 5 MCG/ACT inhaler Inhale 2 puffs in the morning and 2 puffs before bedtime. Rinse mouth with water after use to reduce aftertaste and incidence of candidiasis. Do not swallow.. 0 Active cholecalciferol 0.125 mg oral tablet (4 sources) Vitamin D Start: 08-11-2023 End: 09-10-2023 take 1 tablet by mouth once in the morning cholecalciferol (Natural Vitamin D-3) 5,000 Units tablet Indications: Vitamin D deficiency, unspecified , Vitamin D deficiency Take 1 tablet (5,000 Units) by mouth in the morning. 30 tablet 2 08/11/2023 09/10/2023 Active Start: 01-02-2023 End: 08-11-2023 take 5000 [IU] by mouth once daily in the morning Cholecalciferol (Vitamin D3) Active 5000 UNIT PO Every morning January 02, 2023 12:00am lisinopril 20 mg oral tablet (3 sources) Angiotensin Converting Enzyme Inhibitor Start: 07-24-2023 End: 08-23-2023 take 1 tablet by mouth in the morning lisinopril 20 MG tablet Indications: Essential (primary) hypertension (CMS/HCC) , Essential hypertension (CMS/HCC) Take 1 tablet (20 mg) by mouth in the morning. 30 tablet 5 07/24/2023 08/23/2023 Active Start: 01-02-2023 take 20 mg by mouth once daily Lisinopril Active 20 MG PO Daily January 02, 2023 12:00am simvastatin 40 mg oral tablet (3 sources) HMG-CoA Reductase Inhibitor Start: 01-02-2023 take 40 mg by mouth once daily in the morning Simvastatin Active 40 MG PO Every morning January 02, 2023 12:00am zolpidem tartrate 5 mg oral tablet (1 source) gamma-Aminobutyri c Acid-ergic Agonist zolpidem (Ambien) 5 MG tablet Take by mouth as needed at bedtime for sleep 0 Active Problems Active Problems Problem Classification Problem Date Documented Da te Episodic/Chronic Cataract (1 source) Unspecified cataract; Translations: [Unspecified cataract] Onset: 02-13-2023 Chronic Cataract (1 source) Cataract; Translations: [Age-related nuclear cataract, left eye] Onset: 01-16-2023 Chronic obstructive pulmonary disease and bronchiectasis (1 source) Chronic obstructive lung disease; Translations: [Chronic obstructive pulmonary disease, unspecified] Onset: 06-16-2023 06-16-2023 Chronic Disorders of lipid metabolism (5 sources) Hyperlipidemia, unspecified; Translations: [Hyperlipidemia] Onset: 11-19-2021 Chronic Essential hypertension (2 sources) Essential (primary) hypertension; Translations: [Essential hypertension] Onset: 11-23-2021 06-16-2023 Chronic Fever of unknown origin (1 source) Fever, unspecified; Translations: [FEVER UNSPECIFIED] Onset: 05-25-2022 Episodic Genitourinary symptoms and ill-defined conditions (6 sources) Asymptomatic microscopic hematuria; Translations: [Other microscopic hematuria] Onset: 11-23-2021 Episodic Nutritional deficiencies (4 sources) Vitamin D deficiency, unspecified; Translations: [Vitamin D deficiency] Onset: 06-08-2022 08-09-2023 Chronic Open wounds of extremities (1 source) Laceration of left thumb; Translations: [Laceration without foreign body of left thumb without damage to nail, initial encounter] Onset: 07-31-2023 07-31-2023 Episodic Other gastrointestinal disorders (1 source) Diarrhea, unspecified; Translations: [DIARRHEA UNSPECIFIED] Onset: 05-25-2022 Episodic Other upper respiratory infections (1 source) Acute upper respiratory infection; Translations: [Acute upper respiratory infection, unspecified] Onset: 07-31-2023 07-31-2023 Episodic Residual codes; unclassified (1 source) Insomnia; Translations: [Insomnia, unspecified] Onset: 06-16-2023 06-16-2023 Episodic Unclassified (3 sources) CONTACT W/AND (SUSP) [...] METB)on Anion gap [Moles/Vol] 9.9 mmol/L Normal [facility] Comment on above: Performed By: #### C VDTBH #### [facility] [address] [address] [address] Hemalatha Brunner Calcium [Mass/Vol] 9.2 mg/dL Normal 8.5-10.1 [facility] Comment on above: Performed By: #### C VDTBH #### [facility] [address] [address] [address] Hemalatha Brunnre Chloride [Moles/Vol] 100 mmol/L Normal 98-107 [facility] Comment on above: Performed By: #### C VDTBH #### [facility] [address] [address] [address] Hemalatha Brunner CO2 [Moles/Vol] 29.3 mmol/L Normal 21.0-32.0 [facility] Comment on above: Performed By: #### C VDTBH #### [facility] [address] [address] [address] Hemalatha Brunner Creatinine [Mass/Vol] 0.66 mg/dL Normal 0.55-1.02 [facility] Comment on above: Performed By: #### C VDTBH #### [facility] [address] [address] [address] Hemalatha Brunner EGFR-AF ANDORRAN >60 Normal >=60 [facility] Comment on above: Performed By: #### C VDTBH #### [facility] [address] [address] [address] Hemalatha Brunner EGFR-NON AF ANDORRAN >60 Normal >=60 [facility] Comment on above: Performed By: #### C VDTBH #### [facility] [address] [address] [address] Hemalatha Brunner Glucose [Mass/Vol] 125 mg/dL Critically high 74-106 T [facility] Comment on above: Performed By: #### C VDTBH #### [facility] [address] [place] [address] Dr. Hemalatha Brunner Potassium [Moles/Vol] 4.2 mmol/L Normal 3.5-5.1 [facility] Comment on above: Performed By: #### C VDTBH #### [facility] [address] [place] [address] Dr. Hemalatha Brunner Sodium [Moles/Vol] 135 mmol/L Critically low 136-[address] [facility] Comment on above: Performed By: #### C VDTBH #### [facility] [address] [place] [address] Dr. Hemalatha Brunner Urea nitrogen [Mass/Vol] 20.0 mg/dL Critically high 7.0-18.0 [facility] Comment on above: Performed By: #### C VDTBH #### [facility] [address] [place] [address] Dr. Hemalatha Brunner Urea nitrogen/Creatinin e [Mass ratio] 30.3 mg/mg Normal [facility] Comment on above: Performed By: #### C VDTBH #### [facility] [address] [place] [address] Dr. Hemalatha Brunner UA RANDOM W/MICROSCOPICon BACTERIA NONE SEEN Normal NONE SEEN [facility] Comment on above: Performed By: #### U AMIC #### [facility] [address] [address] [address] Hemalatha Brunner Bilirubin Ql (U) Negative Normal NEGATIVE [facility] Comment on above: Performed By: #### U AMIC #### [facility] [address] [address] [address] Hemalatha Brunner CAST NONE SEEN Normal NONE SEEN [facility] Comment on above: Performed By: #### U AMIC #### [facility] [address] [address] [address] Hemalatha Brunner Clarity (U) CLEAR Normal CLEAR [facility] Comment on above: Performed By: #### U AMIC #### [facility] [address] [place] [address] Dr. Hemalatha Brunner Color (U) LT. YELLOW Normal YELLOW [facility] Comment on above: Performed By: #### U AMIC #### [facility] [address] [address] [address] Hemalatha Brunner Crystals LM Nom (Urine sed) NONE SEEN Normal NONE SEEN [facility] Comment on above: Performed By: #### U AMIC #### [facility] [address] [address] [address] Hemalatha Brunner Epithelial cells LM Ql (Urine sed) RARE Normal NONE SEEN /RARE [facility] Comment on above: Performed By: #### U AMIC #### [facility] [address] [address] [address] Hemalatha Brunner Glucose Ql (U) Negative Normal NEGATIVE [facility] Comment on above: Performed By: #### U AMIC #### [facility] [address] [place] [address] Dr. Hemalatha Brunner Hemoglobin Ql (U) MODERATE Abnormal NEGATIVE [facility] Comment on above: Performed By: #### U AMIC #### [facility] [address] [place] [address] Dr. Hemalatha Brunner Ketones Ql (U) Negative Normal NEGATIVE [facility] Comment on above: Performed By: #### U AMIC #### [facility] [address] [address] [address] Hemalatha Brunner LEUKOCYTES Negative Normal NEGATIVE [facility] Comment on above: Performed By: #### U AMIC #### [facility] [address] [address] [address] Hemalatha Brunner MUCOUS NONE SEEN Normal NONE SEEN [facility] Comment on above: Performed By: #### U AMIC #### [facility] [address] [address] [address] Hemalatha Brunner Nitrite Ql (U) Negative Normal NEGATIVE [facility] Comment on above: Performed By: #### U AMIC #### [facility] [address] [place] [address] Dr. Hemalatha Brunner pH (U) 5.5 [pH] Normal 5-9 [facility] Comment on above: Performed By: #### U AMIC #### [facility] [address] [place] [address] Dr. Hemalatha Brunner RBC 5-10 Abnormal 0-2 [facility] Comment on above: Performed By: #### U AMIC #### [facility] [address] [place] [address] Dr. Hemalatha Brunner SPEC GRAVITY 1.025 Normal 1.005-<=1.025 [facility] Comment on above: Performed By: #### U AMIC #### [facility] [address] [place] [address] Dr. Hemalatha Brunner UA PROTEIN Negative Normal NEGATIVE/ TRACE [facility] Comment on above: Performed By: #### U AMIC #### [facility] [address] [place] [address] Dr. Hemalatha Brunner Urobilinogen Qn (U) 0.2 {Savana'U}/dL Normal 0.2 - 1.0 [facility] Comment on above: Performed By: #### U AMIC #### [facility] [address] [place] [address] Dr. Hemalatha Brunner WBC NONE SEEN Normal NONE SEEN [facility] Comment on above: Performed By: #### U AMIC #### [facility] [address] [place] [address] Dr. Hemalatha Brunner VITAMIN D 25 OHon 06-03-2022 VIT D 25-OH 27.5 ng/mL Normal [facility] Comment on above: Performed By: #### V ITAD #### [facility] [address] [address] [address] Hemalatha Brunner VIT D RANGES SEE BELOW Normal [facility] Comment on above: Result Comment: <20 ng/mL Vit D deficient 20 - <30 ng/mL Vit D insufficient 30 - 100 ng/mL Vit D sufficient >100 ng/mL Potential Toxicity Performed By: #### V ITAD #### [facility] [address] [address] [address] Hemalatha Brunner Covid-19 PCR ([facility])on 05-07 SARS-CoV-2 (COVID-19) RNA GLROIA+probe Ql (Unsp spec) Detected Critically abnormal NOT DETECTED [facility] Comment on above: Result Comment: This test is not yet approved or cleared by the [place] FDA. When there are no FDA-approved or cleared tests available, and other criteria are met, FDA can make tests available under an emergency access mechanism called an Emergency Use Authorization (EUA). The EUA for this test is supported by the [employer] of Health and Human Service's (HHS's) declaration [...] used). Performed By: #### C VDTBH #### [facility] [address] [place] [address] Dr. Hemalatha Brunner INFLUENZA A AND B AGon 05-23 INFLUANEGH SEE BELOW Normal [facility] Comment on above: Result Comment: Nega tive for Flu A protein angiten. Infection due to Flu A cannot be ruled out. Flu A angiten in the sample may be below the detection limit of the test. Performed By: #### I NFLUAB #### [facility] [address] [place] [address] Dr. Hemalatha rBunner [facility] SEE BELOW Normal [facility] Comment on above: Result Comment: Nega tive for Flu B protein antigen. Infection due to Flu B cannot be ruled out. Flu B antigen in the sample may be below the detection limit of the test. Performed By: #### I NFLUAB #### [facility] [address] [place] [address] Dr. Hemalatha Brunner INFLUENZA A AG Negative Normal NEGATIVE SEE COMMENT [facility] Comment on above: Performed By: #### I NFLUAB #### [facility] [address] [place] [address] Dr. Hemalatha Brunner INFLUENZA B AG Negative Normal NEGATIVE SEE COMMENT [facility] Comment on above: Performed By: #### I NFLUAB #### [facility] [address] [place] [address] Dr. Hemalatha Brunner INTERNAL CONTROLS Within Normal Limits Normal Wi thin Normal Limits [facility] Comment on above: Performed By: #### I NFLUAB #### [facility] [address] [place] [address] Dr. Hemalatha Brunner CBC AUTO DIFFon 11-19-2021 BASO # 0.1 103/ul Normal 0.0-0.1 [facility] Comment on above: Performed By: #### C BC #### [facility] [address] [place] [address] Dr. Hemalatha Brunner Basophils/100 WBC (Bld) 0.9 % Normal 0.2-2.0 [facility] Comment on above: Performed By: #### C BC #### [facility] [address] [place] [address] Dr. Hemalatha Brunner EO # 0.2 103/ul Normal 0.0-0.7 [facility] Comment on above: Performed By: #### C BC #### [facility] [address] [place] [address] Dr. Hemalatha Brunner Eosinophils/100 WBC (Bld) 2.7 % Normal 0.9-7.0 [facility] Comment on above: Performed By: #### C BC #### [facility] [address] [place] [address] Dr. Hemalatha Brunner Erythrocyte distribution width (RBC) [Ratio] 13.3 % Normal 11.0-15.0 [facility] Comment on above: Performed By: #### C BC #### [facility] [address] [place] [address] Dr. Hemalatha Brunner Hematocrit (Bld) [Volume fraction] 40.8 % Normal 36.0-48.0 [facility] Comment on above: Performed By: #### C BC #### [facility] [address] [place] [address] Dr. Hemalatha Brunner Hemoglobin (Bld) [Mass/Vol] 13.4 g/dL Normal 12.0-16.0 [facility] Comment on above: Performed By: #### C BC #### [facility] [address] [place] [address] Dr. Hemalatha Brunner IG # 0.02 10e3/ul Normal 0.00-0.03 [facility] Comment on above: Performed By: #### C BC #### [facility] [address] [place] [address] Dr. Hemalatha Brunner IG % 0.3 % Normal 0.0-0.5 [facility] Comment on above: Performed By: #### C BC #### [facility] [address] [place] [address] Dr. Hemalatha Brunner LYMPH # 2.7 103/ul Normal 1.2-3.8 [facility] Comment on above: Performed By: #### C BC #### [facility] [address] [place] [address] Dr. Hemalatha Brunner Lymphocytes/100 WBC (Bld) 40.8 % Normal 20.5-60.0 [facility] Comment on above: Performed By: #### C BC #### [facility] [address] [place] [address] Dr. Hemalatha Brunner MANUAL DIFF REQ NO Normal [facility] Comment on above: Performed By: #### C BC #### [facility] [address] [place] [address] Dr. Hemalatha Brunner MCH (RBC) [Entitic mass] 29.7 pg Normal 26.7-34.0 [facility] Comment on above: Performed By: #### C BC #### [facility] [address] [place] [address] Dr. Hemalatha Brunner MCHC (RBC) [Mass/Vol] 32.8 g/dL Normal 29.9-35.2 [facility] Comment on above: Performed By: #### C BC #### [facility] [address] [place] [address] Dr. Hemalatha Brunner MCV (RBC) [Entitic vol] 90.5 fL Normal 81.0-99.0 [facility] Comment on above: Performed By: #### C BC #### [facility] [address] [place] [address] Dr. Hemalatha Brunner MONO # 0.6 103/ul Normal 0.3-0.8 [facility] Comment on above: Performed By: #### C BC #### [facility] [address] [place] [address] Dr. Hemalatha Brunner Monocytes/100 WBC (Bld) 8.3 % Normal 1.7-12.0 [facility] Comment on above: Performed By: #### C BC #### [facility] [address] [place] [address] Dr. Hemalatha Brunner NEUT # 3.2 103/ul Normal 1.4-6.5 [facility] Comment on above: Performed By: #### C BC #### [facility] [address] [place] [address] Dr. Hemalatha Brunner Neutrophils/100 WBC (Bld) 47.0 % Normal 43.0-75.0 [facility] Comment on above: Performed By: #### C BC #### [facility] [address] [place] [address] Dr. Hemalatha Brunner Platelet mean volume (Bld) [Entitic vol] 9.3 fL Critically low 9.5-13.5 [facility] Comment on above: Performed By: #### C BC #### [facility] [address] [place] [address] Dr. Hemalatha Brunner PLT 305 103/ul Normal 150-450 [facility] Comment on above: Performed By: #### C BC #### [facility] [address] [place] [address] Dr. Hemalatha Brunner RBC 4.51 106/ul Normal 4.20-5.40 [facility] Comment on above: Performed By: #### C BC #### [facility] [address] [place] [address] Dr. Hemalatha Brunner WBC 6.7 103/ul Normal 4.0-11.0 [facility] Comment on above: Performed By: #### C BC #### [facility] [address] [place] [address] Dr. Hemalatha Brunner LIPID PROFILEon 11-19-2021 CHOL-HDL RATIO NORM SEE BELOW Normal [facility] Comment on above: Result Comment: 3.3 - 4.4 LOW RISK 4.4 - 7.1 AVERAGE RISK 7.1 - 11.0 MODERATE RISK >11.0 HIGH RISK Performed By: #### C MP, LIPID #### [facility] [address] [place] [address] Dr. Hemalatha Brunner Cholesterol [Mass/Vol] 192 mg/dL Normal <=200 [facility] Comment on above: Performed By: #### C MP, LIPID #### [facility] [address] [place] [address] Dr. Hemalatha Brunner Cholesterol in HDL [Mass/Vol] 65 mg/dL Critically high 40-60 [facility] Comment on above: Performed By: #### C MP, LIPID #### [facility] [address] [place] [address] Dr. Hemalatha Brunner Cholesterol in LDL [Mass/Vol] 108.6 mg/dL Normal [facility] Comment on above: Performed By: #### C MP, LIPID #### [facility] [facility] [address] [place] [address] Dr. Hemalatha Brunner Cholesterol.total/ Cholesterol in HDL [Mass ratio] 3.0 {ratio} Normal [facility] Comment on above: Performed By: #### C MP, LIPID #### [facility] [address] [address] [address] Hemalatha Brunner HDL NORMAL > or = 60 mg/dl - LOW CARDIOVASCULAR RISK <40 mg/dl - HIGH CARDIOVASCULAR RISK Normal [facility] Comment on above: Performed By: #### C MP, LIPID #### [facility] [address] [address] [address] Hemalatha Brunner LDL CALC NORMAL SEE BELOW Normal [facility] Comment on above: Result Comment: <100 mg/dl OPTIMAL 100 - 129 mg/dl NEAR OR ABOVE OPTIMAL 130 - 159 mg/dl BORDERLINE HIGH 160 - 189 mg/dl HIGH >190 mg/dl VERY HIGH Performed By: #### C MP, LIPID #### [facility] [address] [place] [address] Dr. Hemalatha Brunner Triglyceride [Mass/Vol] 92 mg/dL Normal <=150 [facility] Comment on above: Performed By: #### C MP, LIPID #### [facility] [address] [place] [address] Dr. Hemalatha Brunner VLDL CALC 18.4 mg/dL Normal [facility] Comment on above: Performed By: #### C MP, LIPID #### [facility] [address] [place] [address] Dr. Hemalatha Brunner PROF 14(COMP METB)on 022 Albumin [Mass/Vol] 4.0 g/dL Normal 3.4-5.0 [facility] Comment on above: Performed By: #### C MP, LIPID #### [facility] [address] [place] [address] Dr. Hemalatha Brunner Albumin/Globulin [Mass ratio] 1.1 {ratio} Normal [facility] Comment on above: Performed By: #### C MP, LIPID #### [facility] [address] [place] [address] Dr. Hemalatha Brunner ALP [Catalytic activity/Vol] 59 U/L Normal 46-116 [facility] Comment on above: Performed By: #### C MP, LIPID #### [facility] [address] [place] [address] Dr. Hemalatha Brunner ALT [Catalytic activity/Vol] 25 U/L Normal 14-59 [facility] Comment on above: Performed By: #### C MP, LIPID #### [facility] [address] [place] [address] Dr. Hemalatha Brunner Anion gap [Moles/Vol] 11.4 mmol/L Normal [facility] Comment on above: Performed By: #### C MP, LIPID #### [facility] [address] [place] [address] Dr. Hemalatha Brunner AST [Catalytic activity/Vol] 12 U/L Critically low 15-37 [facility] Comment on above: Performed By: #### C MP, LIPID #### [facility] [address] [place] [address] Dr. Hemalatha Brunner Bilirubin [Mass/Vol] 0.5 mg/dL Normal 0.2-1.0 [facility] Comment on above: Performed By: #### C MP, LIPID #### [facility] [address] [place] [address] Dr. Hemalatha Brunner Calcium [Mass/Vol] 9.2 mg/dL Normal 8.5-10.1 [facility] Comment on above: Performed By: #### C MP, LIPID #### [facility] [address] [place] [address] Dr. Hemalatha Brunner Chloride [Moles/Vol] 100 mmol/L Normal 98-107 [facility] Comment on above: Performed By: #### C MP, LIPID #### [facility] [address] [place] [address] Dr. Hemalatha Brunner CO2 [Moles/Vol] 28.7 mmol/L Normal 21.0-32.[address] [facility] Comment on above: Performed By: #### C MP, LIPID #### [facility] [address] [place] [address] Dr. Hemalatha Brunner Creatinine [Mass/Vol] 0.59 mg/dL Normal 0.55-1.02 [facility] Comment on above: Performed By: #### C MP, LIPID #### [facility] [address] [place] [address] Dr. Hemalatha Brunner EGFR-AF ANDORRAN >60 Normal >=60 [facility] Comment on above: Performed By: #### C MP, LIPID #### [facility] [address] [address] [address] Hemalatha Brunner EGFR-NON AF ANDORRAN >60 Normal >=60 [facility] Comment on above: Performed By: #### C MP, LIPID #### [facility] [address] [address] [address] Hemalatha Brunner Globulin (S) [Mass/Vol] 3.6 g/dL Normal [facility] Comment on above: Performed By: #### C MP, LIPID #### [facility] [address] [address] [address] Hemalatha Brunner Glucose [Mass/Vol] 99 mg/dL Normal 74-106 [facility] Comment on above: Performed By: #### C MP, LIPID #### [facility] [address] [place] [address] Dr. Hemalatha Brunner Potassium [Moles/Vol] 4.1 mmol/L Normal 3.5-5.1 [facility] Comment on above: Performed By: #### C MP, LIPID #### [facility] [address] [address] [address] Hemalatha Brunner Protein [Mass/Vol] 7.6 g/dL Normal 6.4-8.2 [facility] Comment on above: Performed By: #### C MP, LIPID #### [facility] [address] [address] [address] Hemalatha Brunner Sodium [Moles/Vol] 136 mmol/L Normal 136-145 [facility] Comment on above: Performed By: #### C MP, LIPID #### [facility] [address] [address] [address] Hemalatha Brunner Urea nitrogen [Mass/Vol] 20.0 mg/dL Critically high 7.0-18.0 [facility] Comment on above: Performed By: #### C MP, LIPID #### [facility] [address] [address] [address] Hemalatha Brunner Urea nitrogen/Creatinin e [Mass ratio] 33.9 mg/mg Normal [facility] Comment on above: Performed By: #### C MP, LIPID #### [facility] [address] [place] [address] Dr. Hemalatha Brunner UA RANDOM W/MICROSCOPICon BACTERIA NONE SEEN Normal NONE SEEN [facility] Comment on above: Performed By: #### U AMIC #### [facility] [address] [place] [address] Dr. Hemalatha Brunner Bilirubin Ql (U) Negative Normal NEGATIVE [facility] Comment on above: Performed By: #### U AMIC #### [facility] [address] [place] [address] Dr. Hemalatha Brunner CAST NONE SEEN Normal NONE SEEN [facility] Comment on above: Performed By: #### U AMIC #### [facility] [address] [place] [address] Dr. Hemalatha Brunner Clarity (U) SL CLOUDY Abnormal CLEAR [facility] Comment on above: Performed By: #### U AMIC #### [facility] [address] [place] [address] Dr. Hemalatha Brunner Color (U) LT. YELLOW Normal YELLOW [facility] Comment on above: Performed By: #### U AMIC #### [facility] [address] [place] [address] Dr. Hemalatha Brunner Crystals LM Nom (Urine sed) NONE SEEN Normal NONE SEEN [facility] Comment on above: Performed By: #### U AMIC #### [facility] [address] [place] [address] Dr. Hemalatha Brunner Epithelial cells LM Ql (Urine sed) RARE Normal NONE SEEN /RARE [facility] Comment on above: Performed By: #### U AMIC #### [facility] [address] [place] [address] Dr. Hemalatha Brunner Glucose Ql (U) Negative Normal NEGATIVE [facility] Comment on above: Performed By: #### U AMIC #### [facility] [address] [place] [address] Dr. Hemalatha Brunner Hemoglobin Ql (U) MODERATE Abnormal NEGATIVE [facility] Comment on above: Performed By: #### U AMIC #### [facility] [address] [address] [address] Hemalatha Brunner Ketones Ql (U) Negative Normal NEGATIVE [facility] Comment on above: Performed By: #### U AMIC #### [facility] [address] [address] [address] Hemalatha Brunner LEUKOCYTES Negative Normal NEGATIVE [facility] Comment on above: Performed By: #### U AMIC #### [facility] [address] [address] [address] Hemalatha Brunner MUCOUS NONE SEEN Normal NONE SEEN [facility] Comment on above: Performed By: #### U AMIC #### [facility] [address] [address] [address] Hemalatha Brunner Nitrite Ql (U) Negative Normal NEGATIVE [facility] Comment on above: Performed By: #### U AMIC #### [facility] [address] [address] [address] Hemalatha Brunner pH (U) 5.5 [pH] Normal 5-9 [facility] Comment on above: Performed By: #### U AMIC #### [facility] [address] [address] [address] Hemalatha Brunner RBC 2-5 Abnormal 0-2 [facility] Comment on above: Performed By: #### U AMIC #### [facility] [address] [address] [address] Hemalatha Brunner SPEC GRAVITY <=1.005 Abnormal 1.005-<=1.025 [facility] Comment on above: Performed By: #### U AMIC #### [facility] [address] [address] [address] Hemalatha Brunner UA PROTEIN Negative Normal NEGATIVE/ TRACE [facility] Comment on above: Performed By: #### U AMIC #### [facility] [address] [place] [address] Dr. Hemalatha Brunner Urobilinogen Qn (U) 0.2 {Savana'U}/dL Normal 0.2 - 1.0 [facility] Comment on above: Performed By: #### U AMIC #### [facility] [address] [address] [address] Hemalatha Brunner WBC NONE SEEN Normal NONE SEEN [facility] Comment on above: Performed By: #### U AMIC #### [facility] [address] [address] [address] Hemalatha Brunner VITAMIN D 25 OHon 11-19-2021 VIT D 25-OH 19.4 ng/mL Normal [facility] Comment on above: Performed By: #### V ITAD #### [facility] [address] [place] [address] Dr. Hemaaltha Brunner VIT D RANGES SEE BELOW Normal [facility] Comment on above: Result Comment: <20 ng/mL Vit D deficient 20 - <30 ng/mL Vit D insufficient 30 - 100 ng/mL Vit D sufficient >100 ng/mL Potential Toxicity Performed By: #### V ITAD #### [facility] [address] [place] [address] Dr. Hemalatha Brunner [facility]on 06[facility]06 SARS-CoV-2 (COVID-19) RNA GLORIA+probe Ql (Unsp spec) Not detected Normal NOT DETECTED [facility] Comment on above: Result Comment: This test is not yet approved or cleared by the [place] FDA. When there are no FDA-approved or cleared tests available, and other criteria are met, FDA can make tests available under an emergency access mechanism called an Emergency Use Authorization (EUA). The EUA for this test is supported by the Pres[employer] Head Teacher of Health and Human Service's (HHS's) declaration [...] SARS-CoV-2. Performed By: #### C VDTBH #### [facility] [address] [place] [address] Dr. Hemalatha Brunner Vital Signs Date Time Vital Sign Value Performing Clinician Radha rivera 02-13-2023 11:25-0400 Diastolic blood pressure 92 mm[Hg] MD Oral Haji Work Phone: [facility] 02-13-2023 11:25-0400 Heart rate 59 /min MD Oral Haji Work Phone: [phone] [place] [address] 02-13-2023 11:25-0400 Respiratory rate 16 /min MD Oral Haji Work Phone: [phone] [place] [address] 02-13-2023 11:25-0400 SaO2% (BldA) [Mass fraction] 98 % MD Oral Haji Work Phone: [facility] 02-13-2023 11:25-0400 Systolic blood pressure 145 mm[Hg] MD Oral Haji Work Phone: [facility] 02-13-2023 10:55-0400 Inhaled oxygen flow rate 5 L/min MD Oral Haji Work Phone: [facility] 02-13-2023 09:02-0400 Body height 157.48 cm MD Oral Haji Work Phone: [facility] 02-13-2023 09:02-0400 Body temperature 97.9 [degF] MD Oral Haji Work Phone: [facility] 02-13-2023 09:02-0400 Body weight 54.43 kg MD Oral Haji Work Phone: [facility] 01-16-2023 13:20-0400 Diastolic blood pressure 89 mm[Hg] MD Oral Haji Work Phone: [facility] 01-16-2023 13:20-0400 Heart rate 61 /min MD Oral Haji Work Phone: [facility] 01-16-2023 13:20-0400 Respiratory rate 16 /min MD Oral Haji Work Phone: [facility] 01-16-2023 13:20-0400 SaO2% (BldA) [Mass fraction] 96 % MD Oral Haji Work Phone: [facility] 01-16-2023 13:20-0400 Systolic blood pressure 164 mm[Hg] MD Oral Haji Work Phone: [facility] 01-16-2023 09:43-0400 Body height 158.75 cm MD Oral Haji Work Phone: [facility] 01-16-2023 09:43-0400 Body temperature 97.9 [degF] MD Oral Haji Work Phone: [facility] 01-16-2023 09:43-0400 Body weight 53.52 kg MD Oral Haji Work Phone: [facility] Encounters Encounter Date Encounter Type Care Provider Facility Start: 02-24-2024 End: 02-24-2024 ambulatory NICHOLE AICHHOLZ Not Available Start: 08-09-2023 [address] Nisha [employer] Work Phone: [facility] Comment on above: Vitamin D deficiency , unspecified; Vitamin D deficiency Start: 07-31-2023 End: 07-31-2023 ambulatory CRUZ ADILIAD Not Available Start: 06-19-2023 Patient encounter procedure Nichole Tatyanaz [employer] Work Phone: [facility] Start: 06-19-2023 End: 06-19-2023 ambulatory NICHOLE AICHHOLZ Not Available Start: 02-13-2023 End: 02-13-2023 ambulatory NON STAFF Facility:[facility] Start: 02-13-2023 End: 02-13-2023 Admission to same day surgery center MD Oral Haji Work Phone: [facility] [place] Start: 02-13-2023 End: 02-13-2023 ambulatory NON STAFF [facility] Work Phone: Start: 01-16-2023 End: 01-16-2023 ambulatory NON STAFF Facility:[facility] Start: 01-16-2023 End: 01-16-2023 Admission to same day surgery center MD Oral Haji Work Phone: [facility] [place] Start: 01-02-2023 End: 01-02-2023 ambulatory NON STAFF Facility:[facility] Start: 01-02-2023 End: 01-02-2023 ambulatory NON STAFF [facility] Work Phone: Start: 01-02-2023 End: 01-02-2023 Departed Referred MD Oral Haji Work Phone: [facility] Work Phone: Start: 01-02-2023 End: 01-02-2023 Patient encounter procedure MD Oral Haji Work Phone: [facility] Work Phone: Start: 06-03-2022 End: 06-04-2022 ambulatory [employer] NICHOLE AICHHOLZ Facility:[facility] Start: 05-23-2022 End: 05-23-2022 ambulatory [employer] LEADER NICHOLE AICHHOLZ Facility:[facility] Start: 11-19-2021 End: 11-20-2021 ambulatory EN[employer] LEADER NICHOLE AICHHOLZ Facility:[facility] Start: 06-19-2021 End: 06-19-2021 ambulatory EN[employer] LEADER NICHOLE AICHHOLZ Facility:[facility] Procedures Date Procedure Procedure Detail Performing Clinician Start: 06-19-2023 Mammography [address] Aichholz [employer] Work Phone: Start: 02-13-2023 Phacoemulsification of cataract with intraocular lens implantation MD Oral Haji Work Phone: Start: 01-16-2023 Phacoemulsification of cataract with intraocular lens implantation MD Oral Haji Work Phone: Plan of Treatment Date Care Activity Detail Author Start: 06-19-2024 Pneumococcal Vaccine : 65+ Years (1 - PCV) Pneumococcal Vaccine: 65+ Years (1 - PCV) [facility] Comment on above: Postponed from 03/09 (Patient Refused) Start: 06-19-2024 Screening for malign ant neoplasm of breast Mammogram [facility] Start: 06-19-2024 Screening for malign ant neoplasm of colon Colorectal Cancer Screening [facility] Comment on above: Postponed from 03/09 (Patient Refused) Start: 01-04-2024 Influenza vaccination Influenza Vacc ine (#1) [facility] Comment on above: Postponed from 03/07 (Patient Refused) Start: 02-13-2023 [facility] Start: 01-16-2023 [facility] Start: 01-16-2023 [facility] Start: 1955 Screening for malign ant neoplasm of colon [facility] Patient referral [facility] Work Phone: Payers Date Payer Category Payer Self-pay 2019 Medicaid [employer] [place] [employer] [id number] 2019-Present [address] [place] [address] [id number] 1959 Unknown [id number] 1955 Unknown [id number] 1955 Unknown [id number] 1955 Unknown [id number] 1955 Unknown [id number] 1955 Unknown [id number] 1955 Unknown [id number] 1955 Unknown [id number] Unknown [id number] Unknown [id number] Unknown [id number] Social History Date Type Detail Facility Start: 01-02-2023 End: 02-13-2023 Tobacco smoking status [facility] Current some day smoker [facility] Start: 1955 Sex Assigned At Female F [facility] Start: 06-19-2023 Tobacco smoking stat us [facility] Ex-smoker [facility] End: 07-07-2019 History of tobacco use Current smoker [facility] End: 07-07-2019 History of tobacco use Cigarette Smoker [facility] Start: 06-19-2023 End: 07-31-2023 Cigarettes smoked current (pack per day) - Reported 1 [facility] Start: 06-19-2023 Tobacco use and exposure Smoke less tobacco non-user [facility] Start: 07-31-2023 Alcohol intake Lifetime non-d edil (finding) [facility] Start: 06-19-2023 End: 07-31-2023 Humiliation, Afraid, Rape, and Kick questionnaire [HARK] [facility] Within the last year , have you been afraid of your partner or ex-partner? No [facility] Are you now , , , , never or living with a partner? [facility] How often to you hav e a drink containing alcohol? Never [facility] How many standard dr inks containing alcohol do you have on a typical day? Patient does not drink [facility] Do you feel stress - tense, restless, nervous, or anxious, or unable to sleep at night because your mind is troubled all the time - these days [OSQ] Not at all [facility] (I/We) worried wheth er (my/our) food would run out before (I/we) got money to buy more. Never true [facility] Start: 1955 Sex Assigned At Not on file [facility] Medical Equipment Procedure Code Equipment Code Equipment Origin al Text Equipment Identifier Dates Phacoemulsification of cataract with intraocular lens implantation Posterior-chamber intraocular lens, pseudophakic [id number] 1 FDA Start: 01-16-2023 Goals Date Patient Goal Desired Activity /State Evaluation note Note Date & Type Note Facility Evaluation note No assessment information availa [facility] Work Phone: Evaluation note Note Date & Type Note Facility Evaluation note Diagnosis Vitamin D deficiency, unspecified Vitamin D deficiency documented in this encounter [facility] Summary Purpose Family History No Family History [...] and content) DATE CREATED AUTHOR 06/08/2022 [facility] DATE CREATED AUTHOR AUTHOR'S ORGANIZ ATION 02/20/2023 [facility] DATE CREATED AUTHOR AUTHOR'S ORGANIZ ATION 02/26/2024 [facility] Care Teams (unrecognized sec tion and content) Team Status: Active Member Role Status Dates NON STAFF Primary Care Provider Active Team Status: Inactive Member Role Status Dates Oral Haji MD Attending Provider Active NON STAFF Primary Care Provider Active [employer] Announcer Relationship Specialty Start Date End Date Rudi Sullivan MD [address] [place] [address] PCP - General Family Medicine 07/30/23 Nichole Cameron NP [address] [place] [address] Nurse Practitioner Family Medicine 05/07/23 Goals (unrecognized section and content) Goals may be documented in a n alternate section Reason for Visit (unrecogniz ed section and content) Reason Comments Med Refill FOR RECORDS PERTAINING TO PATIENTS WHO ARE [...] BE BASED ON THE PRIMARY CLINICAL RECORDS. [employer] [facility]. provides no warranty or guarantee of the accuracy or completeness of information in this document.
[2024-04-07 08:17] LABS: Basophils Absolute Auto 0.1 10^3/uL (0.0-0.1); Basophils Percent Auto 0.7 % (0.2-2.0); Eosinophils Absolute Auto 0.3 10^3/uL (0.0-0.7); Eosinophils Percent Auto 3.9 % (0.9-7.0); Hematocrit 43.6 % (36.0-48.0); Hemoglobin 14.3 g/dL (12.0-16.0); Immature Granulocytes Abs Auto 0.01 10^3/uL (0.00-0.03); Immature Granulocytes Pct Auto 0.1 % (0.0-0.5); Lymphocytes Absolute Auto 2.3 10^3/uL (1.2-3.8); Mean Corpuscular HGB Conc 32.8 g/dL (29.9-35.2); Mean Corpuscular Hemoglobin 29.5 pg (26.7-34.0); Mean Corpuscular Volume 90.1 fL (81.0-99.0); Mean Platelet Volume 8.7 fL (9.5-13.5); Monocytes Absolute Auto 0.5 10^3/uL (0.3-0.8); Monocytes Percent Auto 7.1 % (1.7-12.0); Neutrophils Absolute Auto 4.1 10^3/uL (1.4-6.5); Neutrophils Percent Auto 56.2 % (43.0-75.0); Platelet Count 284 10^3/uL (150-450); Red Blood Count 4.84 10^6/uL (4.20-5.40); Red Cell Distribution Width 13.2 % (11.0-15.0); White Blood Count 7.2 10^3/uL (4.0-11.0)
[2024-04-07 08:23] LABS: Bilirubin Urine NEGATIVE (NEGATIVE); Blood Urine LARGE (NEGATIVE); Clarity Urine CLEAR (CLEAR); Color Urine YELLOW (YELLOW); Glucose Urine UA NEGATIVE (NEGATIVE); Ketones Urine NEGATIVE (NEGATIVE); Leukocyte Esterase Urine NEGATIVE (NEGATIVE); Nitrite Urine NEGATIVE (NEGATIVE); Protein Urine NEGATIVE (NEG/TRACE); Specific Gravity Urine 1.025 (1.005-1.025); Urine Microscopic Indicated YES; Urobilinogen Urine 0.2 EU/dL (0.2-1.0)
[2024-04-07 08:39] LABS: Bacteria Urine TRACE #/HPF (NONE SEEN); Creatinine Urine Random 128.97 mg/dL (20.00-300.00); Microalbum Creatinine Ratio Ur 52.7 mg/g (0.0-29.9); Microalbumin Urine Random 6.8 mg/dL (<=30.0); RBC Urine 20-50 #/HPF (0-2); WBC Urine NONE SEEN #/HPF (NONE SEEN)
[2024-04-07 08:40] LABS: Cast Seen? NONE SEEN #/LPF (NONE SEEN); Crystals Seen? None Seen #/HPF (None Seen); Mucus Urine SMALL (NONE SEEN); Squamous Epithelial Cell Urine FEW #/LPF (NONE/RARE)
[2024-04-07 09:23] LABS: Alanine Aminotransferase 18 U/L (14-59); Albumin Globulin Ratio 1.1; Albumin Level 3.8 g/dL (3.4-5.0); Alkaline Phosphatase 57 U/L (46-116); Anion Gap 12.8; Aspartate Amino Transferase 15 U/L (15-37); BUN Creatinine Ratio 20.3; Calcium 9.5 mg/dL (8.5-10.1); Carbon Dioxide 28.2 mmol/L (21.0-32.0); Chloride 101 mmol/L (98-107); Chol HDL Ratio 2.7; Cholesterol 208 mg/dL (<=200); Estimated GFR (African America >60 (>=60 mL/min/1.73m^2); Estimated GFR (Non-African Ame >60 (>=60 mL/min/1.73m^2); Globulin 3.6 g/dL; Glucose 95 mg/dL (74-106); HDL Cholesterol 78 mg/dL (40-60); Sodium 138 mmol/L (136-145); Total Protein 7.4 g/dL (6.4-8.2); Triglycerides 89 mg/dL (<=150); VLDL CHOLESTEROL 17.8 mg/dL
== END 2024-04-07 08:01 | disposition home or self-care (01) ==
LOC: LAB 08:01
PROVIDERS: PCP Nurse Practitioner; Visit Provider Nurse Practitioner
DX: J44.9 Chronic obstructive pulmonary disease, unspecified (principal); E55.9 Vitamin D deficiency, unspecified; E78.2 Mixed hyperlipidemia; I10 Essential (primary) hypertension; R31.29 Other microscopic hematuria
CPT/HCPCS: 36415; 80053; 80061; 81001; 82043; 82306; 82570; 85025; 87086